=== PATIENT | male | born 1950 | race African-American/Black ===

== ENCOUNTER 2019-01-09 16:59 | Day surgery (SDC) | payer OTHER ==
[~2019-01-09] VITALS: Ht 180.3 cm; Wt 63.5 kg
--- NOTE | 2019-01-09 16:40 | PDOC4 ---
OPERATIVE NOTE Date: Date: January 09, 2019 Pre-Op Diagnosis: COPD YUMIKO Caries, non restorable teeth # 3,4,5,6,7,8,9,10,11,12,13,14,15,21,22,23,24,25,26,27,28,29 Large bilateral mandibular mayito Post-Op Diagnosis: COPD YUMIKO Caries, non restorable teeth # 3,4,5,6,7,8,9,10,11,12,13,14,15,21,22,23,24,25, 26,27,28,29 Large bilateral mandibular mayito Procedure Performed: surgical removal of Caries, non restorable teeth # 3,4,5,6,7,8,9,10,11,12,13,14,15,21,22,23,24,25,26,27,28,29 Large bilateral mandibular mayito 4 quadrants of alveoloplasty Surgeon: james Anesthesia Type: hopgood Blood Loss: 100 Specimans Obtained: left buccal mucosa, fibromatous lesion Findings: left buccal mucosa fibromatous lesion Complications: none Operative Note: see dictation CARD,MEAGAN Ariza DMD January 09, 2019 16:40
[~2019-01-09 16:59] MED LIST: ASPI81TA50 PO; ATOR20TA58 PO; BACITRACIN 50,000 UNIT in IV NORMAL SALINE 500ML BAG 500 ML IRR ONE; BUPIVAC MPF-EPI 0.5%-1:200000 30 ML VIAL. ONE; CHLORHEXIDINE 0.12% 15 ML MOUTHWASH. ONE; CHOL100013 PO; DESFLURANE 61 TO 120 MINUTES IH ONE; DEXAMETHASONE SOD PHOS 4 MG/ML VIAL ONE; GUAI600T47 PO; HYDROmorphone 2 MG/ML VIAL IV PRN; IV RINGERS,LACTATED 1000ML 1,000 ML IV SCH; LIDOCAINE 1% PF 2 ML VIAL. ID PRN; LIDOCAINE 2% PF 5 ML VIAL. ONE; MELA3TAB2 PO; MELO7.5T29 PO; MORPHINE SULFATE 2 MG/ML VIAL. IV PRN; OMEP40CA5 PO; ONDANSETRON PF 4 MG/2 ML VIAL. IV PRN; ONDANSETRON PF 4 MG/2 ML VIAL. ONE; PHENYLEPHRINE in 0.9% NACL PF 1 MG/10 ML SYRINGE. IV ONE; PROCHLORPERAZINE 10 MG/2 ML VIAL. IV PRN; PROPOFOL 20 ML IV ONE; ROCURONIUM 50 MG/5 ML VIAL. ONE; SURGICEL HEMOSTAT 4X8 EACH. ONE; ePHEDrine PF IN SALINE 50 MG/10 ML SYRINGE. IV ONE; fentaNYL PF VIAL 100 MCG/2 ML VIAL IV PRN; fentaNYL PF VIAL 100 MCG/2 ML VIAL ONE
--- NOTE | 2019-01-09 17:16 | OP ---
DATE OF SURGERY: 01/09/2019 OPERATING SERVICE: psych rn. ATTENDING PHYSICIAN: Meagan Drake DMD. PREOPERATIVE DIAGNOSES: Chronic obstructive pulmonary disease, hypertension, obstructive sleep apnea, caries, nonrestorable teeth numbers 3, 4, 5, 6, 7, 8, 9, 10, 11, 12, 13, 14, 15, 21, 22, 23, 24, 25, 26, 27, 28, 29, extremely large bilateral mandibular mayito, large buccal exostoses of the maxilla. POSTOPERATIVE DIAGNOSES: Chronic obstructive pulmonary disease, hypertension, obstructive sleep apnea, caries, nonrestorable teeth numbers 3, 4, 5, 6, 7, 8, 9, 10, 11, 12, 13, 14, 15, 21, 22, 23, 24, 25, 26, 27, 28, 29, extremely large bilateral mandibular mayito, large buccal exostoses of the maxilla. PROCEDURES PERFORMED: Extraction of aforementioned teeth and alveoloplasty of all 4 quadrants and bilateral mandibular mayito removal. BRIEF HISTORY: The [facility] previously mentioned issues. Considering his multiple comorbidities and extremely large mandibular mayito, the setting of care was escalated to the OR. The patient was affable with our plan and permit was obtained and the H and P was performed in our clinic. DRAINS PLACED: None. SPECIMENS: Left buccal mucosa fibromatous lesion. This lesion was observed during the procedure and felt it may warrant biopsy. This lesion was excised as a 3 mm lesion of the left buccal mucosa near the left mandibular retromolar pad. It was excised in ellipse fashion. ESTIMATED BLOOD LOSS: Approximately 100 mL. COMPLICATIONS: None noted at the time of surgery. OPERATIVE DESCRIPTION: After the history and physical was updated in the preoperative holding area, the patient was transported by the Anesthesia Service to the operating suite, placed in the supine position. All pressure points were checked and general anesthetic was then induced and the patient was then intubated. The tube was secured with a traditional oral maxillofacial surgery head wrap. The surgery began with a timeout. All perioperative staffs were in agreeance. Moistened throat pack was placed. The teeth were cleansed with Peridex. Surgery began with administration of 25 mL of 0.5% Marcaine and 1:200,000 epinephrine and then additional 5 mL were administered later during the procedure. Surgery began with the 15 blade. The upper right and lower right quadrants were incised as was the upper left and lower left quadrants. Full thickness mucoperiosteal flaps were reflected buccally. All teeth were luxated, elevated and extracted in a surgical fashion. Rotary instrumentation was performed in the bilateral very large buccal exostoses and these were removed with copious normal sterile saline prior to extraction of the maxillary dentition. The mandibular dentition was removed in a surgical fashion with hand elevators and hand instruments. Alveoloplasty was then performed with rongeurs, bone file and curettage. Attention was directed to the extremely large bilateral mandibular mayito. Care was taken to reflect the mucosa lingually over the bilateral mandibular mayito. This took considerable time and rotary instrumentation was employed to then section these mayito away from the mandible. Chisels were then employed to complete the removal by chiseling these mayito away. Care was taken with the mandible to avoid fracture. Once these were removed, additional rotary instrumentation was required to smooth down the lingual mandible and remove additional bony undercuts. These were complicated mayito. These mayito were touching in the middle at midline. Copious normal sterile saline was then lavaged in all extraction sites. Curettage was performed in all extraction sites. Closure of the wounds began on the left quadrants with a running locked 3-0 chromic gut sutures. As discussed, the left buccal mucosa fibromatous lesion approximately 3 mm was excised. This lesion was near the left retromolar pad near the mandible. This was excised in ellipse fashion and primary closure was obtained with 3-0 chromic gut sutures. Gelfoam was packed in the extraction sites. Additionally, the right upper and lower quadrants were then oversewn with 3-0 chromic gut sutures in a running locked fashion. This completed the surgery. The oral cavity was then lavaged and suctioned and the moistened throat pack was removed. An OG was passed and the stomach was decompressed. The patient was then returned to the care of Anesthesia where he was awakened and extubated without complication and transported to the PACU in stable condition. MEAGAN DRAKE DMD DR: ADDIS/blaze JOB#: [id number] / [id number]
[2019-01-09 17:40] VITALS: BP 149/80
--- NOTE | 2019-01-11 15:05 | PATHOLOGY ---
[facility] Accession Number: [id number] . 01 Material submitted: . mouth - LEFT BUCCAL FIBROMA. Modifiers: buccal, left . 01 Clinical history: . None provided. . 02 Diagnosis: Squamous mucosa, submucosa and skeletal muscle tissue, left buccal region: - Fibroma. . (JP:mm; 01/11/2019) [facility]/01/11/2019 . 02 Comment: There is no evidence of malignancy. . (JPM:mm; 01/11/2019) . 02 Electronically signed: . Edilberto Danielle MD, Pathologist NPI- [id number] . 01 Gross description: . Received in formalin labeled "Elijah Dejesus, left buccal fibroma" is a fragment of miller-white rubbery tissue measuring 0.6 x 0.5 x 0.4 cm. The specimen is submitted without sectioning in cassette A1. ([facility] [place] 01/10/2019) SYC/SYC . 02 Pathologist provided ICD-10: D21.0 . 02 CPT . 719121 Specimen Comment: A courtesy copy of this report has been sent to Specimen Comment: [phone]. Specimen Comment: Report sent to Performed at: 01 [facility] [address], [place], [place] [id number] MD Jamil Clement MD Phone: [phone] Performed at: 02 [facility] [address], [place] [id number] MD Edilberto Danielle MD Phone: [phone]
== END 2019-01-09 18:19 | disposition home or self-care (01) ==
LOC: SURG 16:59
PROVIDERS: ATTEND Dentist Oral and Maxillofacial Surgery
DX: K02.9 Dental caries, unspecified (principal); J44.9 Chronic obstructive pulmonary disease, unspecified; I10 Essential (primary) hypertension; G47.33 Obstructive sleep apnea (adult) (pediatric); K21.9 Gastro-esophageal reflux disease without esophagitis; F41.9 Anxiety disorder, unspecified; F32.9 Major depressive disorder, single episode, unspecified; Z79.82 Long term (current) use of aspirin
CPT/HCPCS: 41874; 88305; J0171; J0690; J1100; J2001; J2370; J2405; J2704; J3010; J3490; J7040; J7120